=== PATIENT | female | born 1940 | race Caucasian/White ===

== ENCOUNTER → 2023-11-24 06:58 | Outpatient (REF) | payer MEDICARE, OTHER, SELFPAY | LOC: WDC 06:58 | PROVIDERS: ATTENDING PHYSICIAN Family Medicine Geriatric Medicine; FAMILY PHYSICIAN Physician Assistant Medical | DX: Z12.31 Encounter for screening mammogram for malignant neoplasm of breast (principal); Z85.3 Personal history of malignant neoplasm of breast; C50.411 Malignant neoplasm of upper-outer quadrant of right female breast; Z17.0 Estrogen receptor positive status [ER+] | CPT/HCPCS: 77063; 77067 ==

== ENCOUNTER → 2023-12-14 07:11 | Outpatient (REF) | payer MEDICARE, OTHER, SELFPAY ==
[2023-12-14 09:09] LABS: ALT (SGPT) 20 U/L (0-35); AST (SGOT) 28 U/L (14-36); Albumin 4.1 g/dl (3.5-5.0); Alkaline Phosphatase 95 U/L (38-126); Blood Urea Nitrogen 27 mg/dl (7-17); Calcium 10.3 mg/dl (8.4-10.2); Carbon Dioxide 29 mmol/L (22-30); Chloride 103 mmol/L (98-107); Glucose 108 mg/dl (70-99); Potassium 4.3 mmol/L (3.5-5.1); Sodium 139 mmol/L (135-145); Total Bilirubin 0.7 mg/dl (0.2-1.3); Total Protein 6.5 g/dl (6.3-8.2); eGFR > 60.00
== END ==
LOC: REG 07:11
PROVIDERS: ATTENDING PHYSICIAN Internal Medicine Hematology & Oncology; REFERRING PHYSICIAN Physician Assistant Medical
DX: M81.8 Other osteoporosis without current pathological fracture (principal); C50.811 Malignant neoplasm of overlapping sites of right female breast
CPT/HCPCS: 36415; 80053

== ENCOUNTER → 2023-12-20 07:24 | Outpatient (REF) | payer MEDICARE, OTHER, SELFPAY ==
[2023-12-20 07:53] LABS: Ionized Calcium 1.27 mMOL/L (1.15-1.33)
[2023-12-20 08:21] LABS: ALT (SGPT) 21 U/L (0-35); AST (SGOT) 30 U/L (14-36); Albumin 4.1 g/dl (3.5-5.0); Alkaline Phosphatase 92 U/L (38-126); Blood Urea Nitrogen 30 mg/dl (7-17); Calcium 10.3 mg/dl (8.4-10.2); Carbon Dioxide 28 mmol/L (22-30); Chloride 104 mmol/L (98-107); Glucose 98 mg/dl (70-99); Potassium 4.4 mmol/L (3.5-5.1); Sodium 139 mmol/L (135-145); Total Bilirubin 0.7 mg/dl (0.2-1.3); Total Protein 6.6 g/dl (6.3-8.2); eGFR > 60.00
[2023-12-20 08:30] LABS: Intact PTH 121.1 pg/ml (13.6-85.8)
[2023-12-20 08:34] LABS: Vitamin D, 25-OH*** 41.2 ng/mL (30-80)
== END ==
LOC: REG 07:24
PROVIDERS: ATTENDING PHYSICIAN Internal Medicine Endocrinology, Diabetes & Metabolism; FAMILY PHYSICIAN Physician Assistant Medical; REFERRING PHYSICIAN Internal Medicine Hematology & Oncology
DX: E83.52 Hypercalcemia (principal); E55.9 Vitamin D deficiency, unspecified; E34.9 Endocrine disorder, unspecified
CPT/HCPCS: 36415; 80053; 82306; 82330; 83970

== ENCOUNTER 2024-01-31 12:07 | Emergency (ER) | payer MEDICARE, OTHER, SELFPAY ==
[2024-01-31 12:08] VITALS: BP 97/70
--- NOTE | 2024-01-31 12:45 | ED.GENMED ---
History of Present Illness
General
Chief Complaint: Fall
Source: patient
Exam Limitations: none
Time Seen by Provider: 01/31/24 12:31
Travel History
Have you had any contact with someone who has COVID-19?: No
Do you have any symptoms of coronavirus? Fever > 100 degrees, chills, cough, shortness of breath, sore throat, loss of taste or smell, muscle aches, or headache?: No
History of Present Illness
History of Present Illness:
See MDM
Past History
Past History
ED Past Medical History: CAD, HTN, Hypercholesterolemia and Other (Carotid artery stenosis)
Social History
Tobacco: Non-smoker
Living: with family
Family History
Family History: Negative Diabetes, Hypertension, Early CAD, Asthma or Cancer
Phy Exam
Physical Exam
Physical Exam:
See MDM
Course
Orders/Labs/Results
Orders:
Orders
01/31/24 12:13
CT Head W/o Iv Contrast Urgent
Comment:
Reason For Exam: fall on plavix
01/31/24 12:44
Acetaminophen [Tylenol] 1,000 mg PO NOW STA
Wrist, Right 3 Views [CR Wrist - Right Min 3 Views] Urgent
Comment:
Reason For Exam: fall, distal radius pain
Vital Signs
Initial and Last Documented VS:
Initial Vital Signs
Temp Pulse Resp BP Pulse Ox
98.1 F 94 20 97/70 95
01/31/24 12:08 01/31/24 12:08 01/31/24 12:08 01/31/24 12:08 01/31/24 12:08
Last Documented Vital Signs
Temp Pulse Resp BP Pulse Ox
98.1 F 94 20 97/70 95
01/31/24 12:08 01/31/24 12:08 01/31/24 12:08 01/31/24 12:08 01/31/24 12:08
MDM/Problems Addressed
Differential Diagnosis Includes:
HPI and MDM Narrative:
83-year-old female presenting with a trip and fall. Patient was walking outside and she thinks her shoe got stuck on the floor. She fell forward on an outstretched hand. She hit the right side of her head. She is on Plavix. She called the
cardiology office and was sent in for head CT. Blood evaluation, she is well-appearing and nontoxic. She has been complaining of right wrist pain. Will obtain CT head given age and mechanism of the injury and will obtain right wrist x-ray
Physical exam
General: Well appearing and non-toxic
HEENT: protecting airway. No scalp hematoma palpated
Neck: Nontender, supple
CV: No evidence of cyanosis
Resp: No accessory muscle use
Abd: Non-distended
Extremities: Mild bruising and tenderness to distal right radius. Extremity neurovascularly intact
Neuro: alert
Psych: Normal affect
Skin: Intact
Problems Addressed including Acute and Chronic Conditions affecting care:
1. Head injury
Acuity: acute
Prognosis: stable
Details: CT head negative.
2. Right wrist injury
Acuity: acute
Prognosis: stable
Details: X-ray negative for fracture
Differential Diagnosis (but not limited to):
Testing considered:
Drug therapy (if applicable): OTC meds, please see d/c instruction regarding Rx drugs
Amount and/or Complexity of Data Reviewed
Clinical info obtained from: Patient
External data reviewed: N/A
Labs I independently reviewed (but not limited to): N/A
Radiology: the CT scan was personally and independently reviewed. In addition, official CT report reviewed.
X-ray independently reviewed: Wrist x-ray negative for fracture
Pulse Ox: not hypoxic
EKG independently reviewed: N/A
Door Manager: N/A
Critical Care: N/A
Risk of Complication:
Social Determinants of health: Good social support
Discussed with other providers: N/A
Escalation of Care includes Admit/Obs: After being observed in the Emergency Department, pt stable for discharge.
Occasional wrong word or 'sound a like' substitutions may have occurred due to the inherent limitations of voice recognition software. Read the chart carefully and recognize, using context, where substitutions have occurred.
*Critical Care Note
Total Time (30-74mins, 75-104mins- exclusive of procedures): Not Applicable
ED Attending Note
-
Portions of this chart may have been created with voice recognition software.� Occasional wrong word or��sound alike� substitutions may have occurred due to the inherent limitations of voice recognition software.
Discharge Plan
Departure
Patient Disposition: Home (Routine Discharge)
Date of Disposition: 01/31/24
Time of Disposition: 13:18
Patient with high blood pressure during this ER visit?: No
Discharge Problem:
Head injury, Contusion of right wrist
Instructions: Head Injury in Adults (DC)
Prescriptions:
No Action
rosuvastatin 10 MG tablet
10 mg PO QPM
clopidogrel 75 MG tablet
75 mg PO DAILY
lisinopril 5 MG tablet
5 mg PO DAILY
metoprolol succinate 25 MG tablet extended release 24 hr
25 mg PO DAILY
Referrals:
Zeb Romero PA-C [Family Provider] -
Activity Restrictions/Additional Instructions:
Please return for any worsening symptoms.
You may return at any time if you have further concerns.
Please follow up with your doctor at the first available appointment, preferably this week.
Thank you for choosing [facility].
Interventions
Interventions:
*Risk Screen - Suicide Last Done: 01/31/24 12:08
*General Assessment Last Done: 01/31/24 12:08
*Neglect/Abuse Screening Last Done: 01/31/24 12:08
Discharge Date and Time
Print Language: [place]
[2024-01-31] MEDS: TYLENOL 1000 MG PO (12:51)
== END 2024-01-31 13:33 | disposition home or self-care (01) ==
LOC: EMR 12:07
PROVIDERS: EMERGENCY PHYSICIAN Student in an Organized Health Care Education/Training Program; FAMILY PHYSICIAN Physician Assistant Medical
DX: S09.90XA Unspecified injury of head, initial encounter (principal); S60.211A Contusion of right wrist, initial encounter; W01.0XXA Fall on same level from slipping, tripping and stumbling without subsequent striking against object, initial encounter; Z79.02 Long term (current) use of antithrombotics/antiplatelets
CPT/HCPCS: 99284; 70450; 73110

== ENCOUNTER → 2024-03-16 06:36 | Outpatient (REF) | payer MEDICARE, OTHER, SELFPAY ==
[2024-03-16 07:39] LABS: % Basophils 0.6 % (0-2); % Immature Granulocytes 0.3 % (0-0.5); % Lymphocytes 20.4 % (20.5-51.1); % Monocytes 9.3 % (1.7-9.3); % Neutrophils 65.4 % (42.2-75.2); Absolute Basophils 0.1 10^3/uL (0-0.2); Absolute Eosinophils 0.3 10^3/uL (0-0.7); Absolute Lymphocytes 1.6 10^3/uL (1.2-3.4); Absolute Monocytes 0.7 10^3/uL (0.1-0.6); Absolute Neutrophils 5.1 10^3/uL (1.4-6.5); Hematocrit 43.3 % (37.0-47.0); Hemoglobin 14.6 g/dL (12.0-16.0); Mean Corp Hgb Conc. 33.7 g/dL (33.0-37.0); Mean Corpuscular Hgb 31.7 pg (27.0-31.0); Mean Corpuscular Volume 94.1 fL (81.0-99.0); Mean Platelet Volume 9.3 fL (7.4-10.4); Nucleated Red Blood Cells % 0 %; Platelet Count 264 10^3/uL (130-400); Red Cell Dist. Width 14.2 % (11.5-14.5); White Blood Cell Count 7.8 10^3/uL (4.8-10.8)
[2024-03-16 08:08] LABS: ALT (SGPT) 20 U/L (0-35); AST (SGOT) 28 U/L (14-36); Albumin 4.3 g/dl (3.5-5.0); Alkaline Phosphatase 84 U/L (38-126); Blood Urea Nitrogen 27 mg/dl (7-17); Calcium 10.1 mg/dl (8.4-10.2); Carbon Dioxide 26 mmol/L (22-30); Chloride 105 mmol/L (98-107); Glucose 92 mg/dl (70-99); Potassium 4.8 mmol/L (3.5-5.1); Sodium 140 mmol/L (135-145); Total Bilirubin 0.8 mg/dl (0.2-1.3); Total Protein 6.6 g/dl (6.3-8.2); eGFR > 60.00
[2024-03-16 08:10] LABS: C-Reactive Protein < 5.00 mg/L (0.0-10.00)
[2024-03-16 08:36] LABS: Erythrocyte Sed Rate 9 mm/hour (0-20)
== END ==
LOC: REG 06:36
PROVIDERS: ATTENDING PHYSICIAN Physician Assistant
DX: R42 Dizziness and giddiness (principal)
CPT/HCPCS: 36415; 80053; 85025; 85652; 86140

== ENCOUNTER → 2024-04-21 06:45 | Outpatient (REF) | payer MEDICARE, OTHER, SELFPAY | LOC: MRI 3T 06:45 | PROVIDERS: ATTENDING PHYSICIAN Physician Assistant; FAMILY PHYSICIAN Physician Assistant Medical; REFERRING PHYSICIAN Specialist | DX: R51.9 Headache, unspecified (principal); R42 Dizziness and giddiness | CPT/HCPCS: 70551 ==

== ENCOUNTER → 2024-04-30 07:27 | Outpatient (REF) | payer MEDICARE, OTHER, SELFPAY ==
[2024-04-30 09:00] LABS: C-Reactive Protein < 5.00 mg/L (0.0-10.00)
[2024-04-30 09:22] LABS: Erythrocyte Sed Rate 9 mm/hour (0-20)
== END ==
LOC: REG 07:27
PROVIDERS: ATTENDING PHYSICIAN Specialist; FAMILY PHYSICIAN Physician Assistant Medical
DX: R51.9 Headache, unspecified (principal)
CPT/HCPCS: 36415; 85652; 86140

== ENCOUNTER → 2024-05-11 10:45 | Outpatient (REF) | payer MEDICARE, OTHER, SELFPAY | LOC: RAD 10:45 | PROVIDERS: ATTENDING PHYSICIAN Nurse Practitioner; FAMILY PHYSICIAN Physician Assistant Medical | DX: I10 Essential (primary) hypertension (principal); I25.10 Atherosclerotic heart disease of native coronary artery without angina pectoris | CPT/HCPCS: 93880 ==

== ENCOUNTER → 2024-05-19 06:44 | Outpatient (REF) | payer MEDICARE, OTHER, SELFPAY | LOC: MRI 3T 06:44 | PROVIDERS: ATTENDING PHYSICIAN Specialist; FAMILY PHYSICIAN Physician Assistant Medical | DX: M54.12 Radiculopathy, cervical region (principal) | CPT/HCPCS: 72141 ==

== ENCOUNTER → 2024-06-09 07:19 | Outpatient (REF) | payer MEDICARE, OTHER, SELFPAY ==
[2024-06-09 09:09] LABS: ALT (SGPT) 30 U/L (0-35); AST (SGOT) 36 U/L (14-36); Albumin 4.3 g/dl (3.5-5.0); Alkaline Phosphatase 75 U/L (38-126); Blood Urea Nitrogen 25 mg/dl (7-17); Carbon Dioxide 27 mmol/L (22-30); Chloride 106 mmol/L (98-107); Glucose 93 mg/dl (70-99); HDL Cholesterol 47 mg/dl; LDL Cholesterol, Calculated 49 mg/dl; Sodium 144 mmol/L (135-145); Total Bilirubin 0.6 mg/dl (0.2-1.3); Total Cholesterol 117 mg/dl (50-199); Total Protein 6.5 g/dl (6.3-8.2); Triglyceride 106 mg/dl (10-149); Very Low Density Lipoprotein 21 mg/dl (0-30); eGFR > 60.00
[2024-06-09 09:44] LABS: Glycohemoglobin (HgbA1c) 5.9 % (4.0-5.6)
[2024-06-09 11:22] LABS: TSH 3.23 uIU/ml (0.47-4.68)
== END ==
LOC: REG 07:19
PROVIDERS: ATTENDING PHYSICIAN Physician Assistant Medical
DX: R73.02 Impaired glucose tolerance (oral) (principal); E78.2 Mixed hyperlipidemia; I10 Essential (primary) hypertension
CPT/HCPCS: 36415; 80053; 80061; 83036; 84443

== ENCOUNTER → 2024-06-16 07:43 | Outpatient (REF) | payer MEDICARE, OTHER, SELFPAY ==
[2024-06-16 09:57] LABS: ALT (SGPT) 31 U/L (0-35); AST (SGOT) 32 U/L (14-36); Albumin 4.3 g/dl (3.5-5.0); Alkaline Phosphatase 74 U/L (38-126); Blood Urea Nitrogen 26 mg/dl (7-17); Calcium 9.9 mg/dl (8.4-10.2); Carbon Dioxide 29 mmol/L (22-30); Chloride 102 mmol/L (98-107); Direct Bilirubin 0.1 mg/dl (0.0-0.4); Glucose 90 mg/dl (70-99); HDL Cholesterol 45 mg/dl; LDL Cholesterol, Calculated 49 mg/dl; Potassium 4.1 mmol/L (3.5-5.1); Sodium 144 mmol/L (135-145); Total Bilirubin 0.6 mg/dl (0.2-1.3); Total Cholesterol 116 mg/dl (50-199); Total Protein 6.6 g/dl (6.3-8.2); Triglyceride 112 mg/dl (10-149); Very Low Density Lipoprotein 22 mg/dl (0-30); eGFR > 60.00
== END ==
LOC: REG 07:43
PROVIDERS: ATTENDING PHYSICIAN Internal Medicine Hematology & Oncology; FAMILY PHYSICIAN Physician Assistant Medical
DX: M81.8 Other osteoporosis without current pathological fracture (principal); C50.811 Malignant neoplasm of overlapping sites of right female breast; E78.5 Hyperlipidemia, unspecified
CPT/HCPCS: 36415; 80053; 80061; 82248

== ENCOUNTER → 2024-09-15 07:27 | Outpatient (REF) | payer MEDICARE, OTHER, SELFPAY ==
[2024-09-15 07:56] LABS: Ionized Calcium 1.22 mMOL/L (1.15-1.33)
[2024-09-15 08:37] LABS: Calcium 9.7 mg/dl (8.4-10.2)
[2024-09-15 09:10] LABS: Intact PTH 196.4 pg/ml (13.6-85.8)
== END ==
LOC: REG 07:27
PROVIDERS: ATTENDING PHYSICIAN Physician Assistant Medical
DX: R73.02 Impaired glucose tolerance (oral) (principal); R79.89 Other specified abnormal findings of blood chemistry; E83.52 Hypercalcemia
CPT/HCPCS: 36415; 82330; 83970

== ENCOUNTER → 2024-09-21 09:08 | Outpatient (REF) | payer MEDICARE, OTHER, SELFPAY ==
[2024-09-23 07:20] LABS: tTG IgA Antibody <1.02 FLU (0.00-4.99)
[2024-09-24 08:05] LABS: Endomysial IgA Antibody Titer <1:10 (<1:10)
== END ==
LOC: REG 09:08
PROVIDERS: ATTENDING PHYSICIAN Internal Medicine Endocrinology, Diabetes & Metabolism; FAMILY PHYSICIAN Physician Assistant Medical
DX: E83.52 Hypercalcemia (principal); R63.4 Abnormal weight loss
CPT/HCPCS: 36415; 82784; 83516; 86231

== ENCOUNTER → 2024-10-08 09:45 | Outpatient (REF) | payer MEDICARE, OTHER, SELFPAY ==
[2024-10-08 11:36] LABS: ALT (SGPT) 20 U/L (0-35); AST (SGOT) 23 U/L (14-36); Albumin 4.1 g/dl (3.5-5.0); Alkaline Phosphatase 89 U/L (38-126); Blood Urea Nitrogen 28 mg/dl (7-17); Calcium 9.9 mg/dl (8.4-10.2); Carbon Dioxide 29 mmol/L (22-30); Chloride 106 mmol/L (98-107); Glucose 104 mg/dl (70-99); Potassium 4.7 mmol/L (3.5-5.1); Sodium 140 mmol/L (135-145); Total Bilirubin 0.6 mg/dl (0.2-1.3); Total Protein 6.4 g/dl (6.3-8.2); eGFR > 60.00
[2024-10-08 11:49] LABS: Free T4 1.01 ng/dl (0.78-2.19)
[2024-10-08 12:03] LABS: TSH 3.27 uIU/ml (0.47-4.68)
== END ==
LOC: REG 09:45
PROVIDERS: ATTENDING PHYSICIAN Internal Medicine Endocrinology, Diabetes & Metabolism; FAMILY PHYSICIAN Physician Assistant Medical
DX: R63.4 Abnormal weight loss (principal)
CPT/HCPCS: 36415; 80053; 84439; 84443

== ENCOUNTER → 2024-11-26 08:11 | Outpatient (REF) | payer MEDICARE, OTHER, SELFPAY | LOC: WDC 08:11 | PROVIDERS: ATTENDING PHYSICIAN Family Medicine Geriatric Medicine; FAMILY PHYSICIAN Physician Assistant Medical | DX: Z12.31 Encounter for screening mammogram for malignant neoplasm of breast (principal) | CPT/HCPCS: 77063; 77067 ==

== ENCOUNTER → 2024-12-20 09:18 | Outpatient (REF) | payer MEDICARE, OTHER, SELFPAY ==
[2024-12-20 10:04] LABS: ALT (SGPT) 23 U/L (0-35); AST (SGOT) 27 U/L (14-36); Albumin 3.8 g/dl (3.5-5.0); Alkaline Phosphatase 95 U/L (38-126); Blood Urea Nitrogen 27 mg/dl (7-17); Calcium 9.7 mg/dl (8.4-10.2); Carbon Dioxide 27 mmol/L (22-30); Chloride 110 mmol/L (98-107); Glucose 108 mg/dl (70-99); Potassium 4.2 mmol/L (3.5-5.1); Sodium 143 mmol/L (135-145); Total Bilirubin 0.6 mg/dl (0.2-1.3); Total Protein 6.1 g/dl (6.3-8.2); eGFR > 60.00
== END ==
LOC: OIDL 09:18
PROVIDERS: ATTENDING PHYSICIAN Internal Medicine Hematology & Oncology
DX: M81.8 Other osteoporosis without current pathological fracture (principal)
CPT/HCPCS: 80053

== ENCOUNTER → 2025-02-08 07:28 | Outpatient (REF) | payer MEDICARE, OTHER, SELFPAY ==
[2025-02-08 08:01] LABS: % Basophils 0.5 % (0-2); % Eosinophils 3.7 % (0-6); % Immature Granulocytes 0.1 % (0-0.5); % Lymphocytes 24.4 % (20.5-51.1); % Monocytes 10.6 % (1.7-9.3); % Neutrophils 60.7 % (42.2-75.2); Absolute Eosinophils 0.3 10^3/uL (0-0.7); Absolute Lymphocytes 1.8 10^3/uL (1.2-3.4); Absolute Monocytes 0.8 10^3/uL (0.1-0.6); Absolute Neutrophils 4.5 10^3/uL (1.4-6.5); Hematocrit 45.6 % (37.0-47.0); Mean Corp Hgb Conc. 32.9 g/dL (33.0-37.0); Mean Corpuscular Hgb 31.7 pg (27.0-31.0); Mean Corpuscular Volume 96.4 fL (81.0-99.0); Nucleated Red Blood Cells % 0 %; Platelet Count 275 10^3/uL (130-400); Red Blood Cell Count 4.73 10^6/uL (4.20-5.40); Red Cell Dist. Width 13.9 % (11.5-14.5); White Blood Cell Count 7.4 10^3/uL (4.8-10.8)
[2025-02-08 08:44] LABS: ALT (SGPT) 24 U/L (0-35); AST (SGOT) 26 U/L (14-36); Albumin 4.3 g/dl (3.5-5.0); Alkaline Phosphatase 75 U/L (38-126); Blood Urea Nitrogen 29 mg/dl (7-17); Carbon Dioxide 28 mmol/L (22-30); Chloride 111 mmol/L (98-107); Glucose 103 mg/dl (70-99); HDL Cholesterol 53 mg/dl; LDL Cholesterol, Calculated 73 mg/dl; Potassium 4.9 mmol/L (3.5-5.1); Sodium 144 mmol/L (135-145); Total Bilirubin 0.6 mg/dl (0.2-1.3); Total Cholesterol 145 mg/dl (50-199); Total Protein 6.5 g/dl (6.3-8.2); Triglyceride 95 mg/dl (10-149); Very Low Density Lipoprotein 19 mg/dl (0-30); eGFR 55.55
[2025-02-08 09:05] LABS: Glycohemoglobin (HgbA1c) 5.8 % (4.0-5.6); TSH 5.04 uIU/ml (0.47-4.68)
== END ==
LOC: REG 07:28
PROVIDERS: ATTENDING PHYSICIAN Physician Assistant Medical
DX: I10 Essential (primary) hypertension (principal); G44.209 Tension-type headache, unspecified, not intractable; R73.01 Impaired fasting glucose; E78.2 Mixed hyperlipidemia
CPT/HCPCS: 36415; 80053; 80061; 83036; 84443; 85025

== ENCOUNTER → 2025-02-25 06:55 | Outpatient (REF) | payer MEDICARE, OTHER, SELFPAY ==
[2025-02-25 08:47] LABS: Free T3 3.50 pg/ml (2.77-5.27)
[2025-02-25 08:49] LABS: Calcium 9.6 mg/dl (8.4-10.2)
== END ==
LOC: REG 06:55
PROVIDERS: ATTENDING PHYSICIAN Physician Assistant Medical
DX: R73.02 Impaired glucose tolerance (oral) (principal); R79.89 Other specified abnormal findings of blood chemistry; E78.2 Mixed hyperlipidemia
CPT/HCPCS: 36415; 82330; 83970; 84439; 84481

== ENCOUNTER → 2025-05-29 08:34 | Outpatient (REF) | payer MEDICARE, OTHER, SELFPAY | LOC: RAD 08:34 | PROVIDERS: ATTENDING PHYSICIAN Internal Medicine Hematology & Oncology; FAMILY PHYSICIAN Physician Assistant Medical | DX: M81.8 Other osteoporosis without current pathological fracture (principal) | CPT/HCPCS: 77080 ==

== ENCOUNTER → 2025-06-06 07:26 | Outpatient (REF) | payer MEDICARE, OTHER, SELFPAY ==
[2025-06-06 08:34] LABS: Hematocrit 47.7 % (37.0-47.0); Hemoglobin 15.3 g/dL (12.0-16.0); Mean Corp Hgb Conc. 32.1 g/dL (33.0-37.0); Mean Corpuscular Volume 95.8 fL (81.0-99.0); Nucleated Red Blood Cells % 0 %; Platelet Count 306 10^3/uL (130-400); Red Cell Dist. Width 13.7 % (11.5-14.5)
[2025-06-06 08:41] LABS: Urine Character Cloudy (Clear)
[2025-06-06 09:33] LABS: Urine White Cell >100 /HPF (0-5)
[2025-06-06 10:30] LABS: ALT (SGPT) 35 U/L (0-35); AST (SGOT) 28 U/L (14-36); Albumin 4.4 g/dl (3.5-5.0); Alkaline Phosphatase 80 U/L (38-126); Blood Urea Nitrogen 21 mg/dl (7-17); Calcium 9.7 mg/dl (8.4-10.2); Carbon Dioxide 30 mmol/L (22-30); Chloride 107 mmol/L (98-107); Glucose 92 mg/dl (70-99); Potassium 4.3 mmol/L (3.5-5.1); Sodium 141 mmol/L (135-145); Total Protein 6.9 g/dl (6.3-8.2); eGFR > 60.00
== END ==
LOC: REG 07:26
PROVIDERS: ATTENDING PHYSICIAN Internal Medicine Hematology & Oncology; FAMILY PHYSICIAN Physician Assistant Medical
DX: M81.8 Other osteoporosis without current pathological fracture (principal); C50.811 Malignant neoplasm of overlapping sites of right female breast; N39.0 Urinary tract infection, site not specified
CPT/HCPCS: 36415; 80053; 81003; 81015; 85025; 87077; 87086; 87186

== ENCOUNTER → 2025-06-11 13:22 | Outpatient (REF) | payer MEDICARE, OTHER, SELFPAY ==
[2025-06-11 14:28] LABS: Urine Character Clear (Clear)
[2025-06-11 15:24] LABS: Urine Red Blood Cell 0-2 /HPF (0-2)
[2025-06-11 15:25] LABS: Urine Urothelial Cell 0-2 /LPF (FEW); Urine White Cell 70-80 /HPF (0-5)
== END ==
LOC: CLAB 13:22
PROVIDERS: ATTENDING PHYSICIAN Physician Assistant Medical
DX: N30.90 Cystitis, unspecified without hematuria (principal)
CPT/HCPCS: 81003; 81015; 87077; 87086; 87186

== ENCOUNTER → 2025-06-21 12:22 | Outpatient (REF) | payer MEDICARE, OTHER, SELFPAY ==
[2025-06-21 14:32] LABS: Urine Character Slightly Cloudy (Clear)
== END ==
LOC: REG 12:22
PROVIDERS: ATTENDING PHYSICIAN Physician Assistant Medical
DX: N30.90 Cystitis, unspecified without hematuria (principal)
CPT/HCPCS: 81003; 81015; 87086

== ENCOUNTER → 2025-08-02 07:21 | Outpatient (REF) | payer MEDICARE, OTHER, SELFPAY ==
[2025-08-02 08:12] LABS: Hematocrit 47.2 % (37.0-47.0); Hemoglobin 14.6 g/dL (12.0-16.0); Mean Corp Hgb Conc. 30.9 g/dL (33.0-37.0); Mean Corpuscular Volume 99.4 fL (81.0-99.0); Nucleated Red Blood Cells % 0 %; Platelet Count 256 10^3/uL (130-400); Red Cell Dist. Width 14.0 % (11.5-14.5)
[2025-08-02 08:38] LABS: ALT (SGPT) 25 U/L (0-35); AST (SGOT) 28 U/L (14-36); Albumin 4.3 g/dl (3.5-5.0); Alkaline Phosphatase 75 U/L (38-126); Blood Urea Nitrogen 21 mg/dl (7-17); Calcium 9.9 mg/dl (8.4-10.2); Carbon Dioxide 29 mmol/L (22-30); Chloride 103 mmol/L (98-107); Glucose 90 mg/dl (70-99); Potassium 4.8 mmol/L (3.5-5.1); Sodium 140 mmol/L (135-145); Total Protein 6.5 g/dl (6.3-8.2); eGFR > 60.00
[2025-08-02 09:08] LABS: TSH 4.57 uIU/ml (0.47-4.68)
[2025-08-02 11:25] LABS: Glycohemoglobin (HgbA1c) 5.8 % (4.0-5.9)
== END ==
LOC: REG 07:21
PROVIDERS: ATTENDING PHYSICIAN Physician Assistant Medical
DX: R73.02 Impaired glucose tolerance (oral) (principal); Z00.00 Encounter for general adult medical examination without abnormal findings; E78.2 Mixed hyperlipidemia; Z85.3 Personal history of malignant neoplasm of breast; I25.10 Atherosclerotic heart disease of native coronary artery without angina pectoris; Z86.73 Personal history of transient ischemic attack (TIA), and cerebral infarction without residual deficits; I10 Essential (primary) hypertension; R79.89 Other specified abnormal findings of blood chemistry
CPT/HCPCS: 36415; 80053; 83036; 84443; 85025

== ENCOUNTER → 2025-08-06 14:22 | Outpatient (REF) | payer MEDICARE, OTHER, SELFPAY | LOC: RAD 14:22 | PROVIDERS: ATTENDING PHYSICIAN Obstetrics & Gynecology; FAMILY PHYSICIAN Physician Assistant Medical | DX: R31.21 Asymptomatic microscopic hematuria (principal) | CPT/HCPCS: 76770 ==

== ENCOUNTER → 2025-08-14 09:23 | Outpatient (REF) | payer MEDICARE, OTHER, SELFPAY | LOC: RAD 09:23 | PROVIDERS: ATTENDING PHYSICIAN Physician Assistant; FAMILY PHYSICIAN Physician Assistant Medical | DX: N13.39 Other hydronephrosis (principal) | CPT/HCPCS: 74178; Q9967 ==